=== PATIENT | female | born 1960 | race Caucasian/White ===

== ENCOUNTER → 2018-12-27 | Outpatient (CLI) | payer BC ==
--- NOTE | 2018-12-27 07:30 | US ---
EXAMINATION TYPE: US duplex aorta DATE OF EXAM: 12/27/2018 COMPARISON: NONE CLINICAL HISTORY: Z82.49 Family aortic aneurysm. EXAM MEASUREMENTS: Abdominal Aorta: Proximal: 1.7 x 1.5 cm Mid: 1.5 x 1.4 cm Distal: 1.5 x 1.5 cm Bifurcation: rt, 0.9 x 0.8 cm lt, 0.9 x 0.9 cm Normal caliber aorta. IMPRESSION: No sonographic evidence of abdominal aortic aneurysm in the visualized portions of the ab dominal aorta.
== END | disposition home or self-care (01) ==
LOC: RADUSWWP 06:45
PROVIDERS: ATTEND Family Medicine
DX: Z13.6 Encounter for screening for cardiovascular disorders (principal); Z82.49 Family history of ischemic heart disease and other diseases of the circulatory system
CPT/HCPCS: 93979

== ENCOUNTER 2019-03-26 10:04 | Day surgery (SDC) | payer BC ==
[2019-03-24 10:25] VITALS: BMI 18.6
[~2019-03-26 10:04] MED LIST: LACTATED RINGERS 1,000 ML IV SCH; LIDOCAINE 1% 20 ML VIAL (10MG/ML) FOR IV START INTRADERMA PRN
[2019-03-26 10:48] VITALS: TEMP 98.5
[2019-03-26] MEDS ORDERED: PROPOFOL 10 MG/ML 20 ML VIAL IV ONE (11:08)
--- NOTE | 2019-03-26 11:26 | P.PCN ---
Date of Procedure: 03/26/19 Procedure(s) Performed: BRIEF HISTORY: Patient is a 59-year-old pleasant white female scheduled for an elective colonoscopy as a part of evaluation of prior history of colon polyps. Last colonoscopy was 5 years ago. PROCEDURE PERFORMED: Colonoscopy. PREOPERATIVE DIAGNOSIS: History of colon polyps IV sedation per Anesthesia. PROCEDURE: After informed consent was obtained, the patient, was brought into the endoscopy unit. IV sedation was administered by Anesthesia under continuous monitoring. Digital rectal examination was normal. Initially the Olympus CF-160 flexible video colonoscope was then inserted in the rectum, gradually advanced into the cecum without any difficulty. Careful examination was performed as the scope was gradually being withdrawn. Ileocecal valve and the appendiceal orifice were visualized and appeared normal. Prep was excellent. Mucosa of the cecum, ascending colon, transverse colon, descending colon, sigmoid colon, and rectum appeared normal. Retroflexion was performed in the rectum and no lesions were seen. The patient tolerated the procedure well. IMPRESSION: Normal-appearing colon from rectum to cecum with no evidence of colitis or colorectal neoplasia . RECOMMENDATIONS: Findings of this examination were discussed with the patient as well as her family. She was advised to have a repeat screening colonoscopy in 5 years cause of the prior history of colon polyps..
[2019-03-26 11:31] VITALS: RESP 16
[2019-03-26 12:27] VITALS: PULSE 60
[2019-03-26 12:28] VITALS: BP 175/73
== END 2019-03-26 12:33 | disposition home or self-care (01) ==
LOC: ORWHC2ENDO 10:04
PROVIDERS: ATTEND Internal Medicine Gastroenterology
DX: Z12.11 Encounter for screening for malignant neoplasm of colon (principal); H91.90 Unspecified hearing loss, unspecified ear; Z86.010 Personal history of colon polyps; Z91.012 Allergy to eggs; Z79.899 Other long term (current) drug therapy; Z85.3 Personal history of malignant neoplasm of breast; Z90.10 Acquired absence of unspecified breast and nipple; Z88.2 Allergy status to sulfonamides
CPT/HCPCS: G0105; J2704

== ENCOUNTER → 2019-05-13 | Outpatient (CLI) | payer BC ==
[2019-05-13 10:39] VITALS: BP 148/86; PULSE 73; RESP 16; TEMP 97.3
--- NOTE | 2019-05-13 11:38 | P.HPOB ---
History of Present Illness H&P Date: 05/13/19 Chief Complaint: The patient is here for her routine gynecologic exam and ma mmogram. This is a 59-year-old 0-2 with an LMP of 2005. She is here to reestablish with this office. She was last here in 2012 and she states she had a pelvic exam elsewhere approximately in 2018. She is without gynecologic complaints and denies any postmenopausal bleeding. Review of Systems The patient's weight has been stable over the last year. She denies r espiratory, cardiac, or G.I. problems. Past Medical History Past Medical History: Cancer, Hearing Disorder / Deafness, Osteoarthritis (OA) Additional Past Medical History / Comment(s): DX LT BREAST CANCER 2000 HAD CHEMO & RADIATION & RADICAL MASTECTOMY 2002, HEARING IMPAIRMENT- HEARING AIDS, ENVIRONMENTAL ALLERGIES. , HX OF SINUS & EAR INFECTIONS. 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 History of Any Multi-Drug Resistant Organisms: None Reported Past Surgical History: Breast Surgery, Tonsillectomy Additional Past Surgical History / Comment(s): LT RADICAL MASTECTOMY 2002, LEFT EAR SURGERY. Colonoscopy 2019(2nd, next after 5yrs). 2 VTP. 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 - Past Family History Father Family Medical History: CVA/TIA Mother Family Medical History: Asthma, Hypertension Additional Family Medical History / Comment(s): Maternal and paternal grandfathers both had CVAs. Brother(s) Family Medical History: Hypertension Medications and Allergies Home Medications Medication Instructions Recorded Confirmed Type Fexofenadine HCl [Nohelia Allergy] 180 mg PO DAILY 11/04/13 05/13/19 History Montelukast [Singulair] 10 mg PO HS 11/04/13 05/13/19 History Albuterol Inhaler [Ventolin Hfa 1 - 2 puff INHALATION RT-Q6H PRN 03/24/19 05/13/19 History Inhaler] Calcium Carbonate [Calcium] 600 mg PO DAILY 03/24/19 05/13/19 History Cholecalciferol (Vitamin D3) 2,000 unit PO DAILY 03/24/19 05/13/19 History [Vitamin D3] Fluticasone Propionate [Flonase 1 spray EA NOSTRIL DAILY 03/24/19 05/13/19 History Allergy Relief] Hyoscyamine Sulfate [Levsin] 0.125 mg PO DAILY PRN 03/24/19 05/13/19 History Multivit-Min/FA/Lycopen/Lutein 1 each PO DAILY 03/24/19 05/13/19 History [Centrum Silver Tablet] Turmeric Root Extract [Turmeric] 500 mg PO DAILY 03/24/19 05/13/19 History Vitamin C/Biotin [Hair, Skin and 1 tab PO DAILY 03/24/19 05/13/19 History Nails] Allergies Allergy/AdvReac Type Severity Reaction Status Date / Time egg Allergy Unknown Stomach Verified 05/13/19 10:39 Pain gluten Allergy Unknown Diarrhea, Verified 05/13/19 10:39 Stomach Pain Milk Containing Products Allergy Unknown Diarrhea Verified 05/13/19 10:39 tree nut [Nut] Allergy Unknown Diarrhea, Verified 05/13/19 10:39 Stomach Pain Exam Vital Signs Temp Pulse Resp BP Pulse Ox 05/13/19 10:31 97.3 F L 73 16 148/86 98 Intake and Output 05/12/19 05/13/19 05/13/19 22:59 06:59 14:59 Other: Weight 48.988 kg Height 5 feet 0 inches, weight 108 pounds, BMI 21.1. This is a well-developed well-nourished white female who is alert and oriented times 3 in no acute distress. HEENT: She is hard of hearing. Otherwise Within normal limits. NECK: Supple without mass or thyromegaly. CHEST AND LUNGS: Clear to auscultation. HEART: Regular rate and rhythm. BREASTS: Right breast is without mass or discharge. Left side is consistent with previous left mastectomy. There are no abnormal masses. AXILLARY EXAM: Negative for adenopathy. BACK: Negative for CVA tenderness. ABDOMEN: Soft, nontender, without palpable masses. PELVIC EXAM: Normal external genitalia with mild atrophy. Cervix and vagina appear normal with mild atrophy. There is no unusual discharge. There is no evidence of prolapse. The uterus is midposition, nongravid size and nontender. There are no palpable adnexal masses or tenderness. RECTAL EXAM: Rectovaginal exam is negative for mass or tenderness and is negative for occult blood. EXTREMITIES: Nontender. IMPRESSION: 1. 59-year-old menopausal female with normal gynecologic exam. 2. History of left breast cancer in 2002. There is no evidence of recurrence on exam today. 3. Elevated blood pressure. PLAN: 1. Pap smear was performed. 2. Self breast awareness was discussed with the patient. 3. Diagnostic right mammogram will be done today. Her last one was in 2018. 4. Osteoporosis prevention was discussed. I have stressed the importance of adequate calcium, vitamin D and regular exercise. Recommended amounts of calcium and vitamin D were also discussed. 5. We have discussed her elevated blood pressure. I have recommended that she check her blood pressure on a regular basis at home. She is to follow-up with Dr. Troy for blood pressure elevations. 6. She was advised to return in one year for her annual well woman exam.
--- NOTE | 2019-05-13 12:04 | MM ---
Reason for exam: additional evaluation requested from prior study. Last mammogram was performed 5 years and 3 months ago. History: Patient is postmenopausal, has history of breast cancer at age 42, and had first child at age 33. Malignant excisional biopsy of the left breast, June 16, 2002. Benign excisional biopsy of the right breast, June 16, 2002. Chemotherapy, 2002. Mastectomy of the left breast. Radiation therapy of the left breast. Took hormonal contraceptives for 3 years. Took tamoxifen for 5 years beginning at age 42. Physical Findings: Dr. Solares did breast exam. MG 3D Diag Mammo W/Cad RT CC and MLO view(s) were taken of the right breast. Prior study comparison: February 24, 2014, right breast MG diagnostic mammo RT w CAD. November 12, 2012, right diagnostic mammogram w/CAD. The breast tissue is heterogeneously dense. This may lower the sensitivity of mammography. No suspicious abnormality. No significant new findings when compared with previous films. These results were verbally communicated with the patient and result sheet given to the patient on 05/13/19. ASSESSMENT: Negative, BI-RAD 1 RECOMMENDATION: Follow-up diagnostic mammogram of the right breast in 1 year.
== END | disposition home or self-care (01) ==
LOC: WWCWWP 10:27
PROVIDERS: ATTEND Obstetrics & Gynecology
DX: Z08 Encounter for follow-up examination after completed treatment for malignant neoplasm (principal); Z85.3 Personal history of malignant neoplasm of breast
CPT/HCPCS: 77061; 77065

== ENCOUNTER → 2020-02-02 | Outpatient (CLI) | payer BC | END | disposition home or self-care (01) | LOC: LABWHC1 10:17 | PROVIDERS: ATTEND Student in an Organized Health Care Education/Training Program | DX: Z20.828 Contact with and (suspected) exposure to other viral communicable diseases (principal) ==

== ENCOUNTER → 2020-02-13 | Outpatient (CLI) | payer BC | END | disposition home or self-care (01) | LOC: LABWHC1 11:35 | PROVIDERS: ATTEND Student in an Organized Health Care Education/Training Program | DX: Z01.818 Encounter for other preprocedural examination (principal) ==

== ENCOUNTER → 2020-06-15 | Outpatient (CLI) | payer BC ==
--- NOTE | 2020-06-17 10:41 | MM ---
Reason for exam: screening (asymptomatic). Last mammogram was performed 1 year and 1 month ago. History: Patient is postmenopausal, has history of breast cancer at age 42, and had first child at age 33. Malignant excisional biopsy of the left breast, June 16, 2002. Benign excisional biopsy of the right breast, June 16, 2002. Chemotherapy, 2002. Mastectomy of the left breast. Radiation therapy of the left breast. Took hormonal contraceptives for 3 years. Took tamoxifen for 5 years beginning at age 42. Physical Findings: A clinical breast exam by your physician is recommended on an annual basis and results should be correlated with mammographic findings. MG 3D Scr Cyndi Unilateral W/Cad CC and MLO view(s) were taken of the right breast. Prior study comparison: May 13, 2019, right breast MG 3d diag mammo w/cad RT. February 24, 2014, right breast MG diagnostic mammo RT w CAD. The breast tissue is heterogeneously dense. This may lower the sensitivity of mammography. No significant changes when compared with prior studies. ASSESSMENT: Negative, BI-RAD 1 RECOMMENDATION: Routine screening mammogram of the right breast in 1 year. Patient should continue monthly self breast exams. A negative report should not preclude additional follow up of suspicious palpable abnormalities.
== END ==
LOC: RADMAMWWP 16:02
PROVIDERS: ATTEND Family Medicine
DX: Z12.31 Encounter for screening mammogram for malignant neoplasm of breast (principal); Z78.0 Asymptomatic menopausal state; Z85.3 Personal history of malignant neoplasm of breast
CPT/HCPCS: 77067

== ENCOUNTER → 2021-06-27 | Outpatient (CLI) | payer BC ==
--- NOTE | 2021-06-28 11:04 | MM ---
Reason for exam: screening (asymptomatic). Last mammogram was performed 1 year ago. History: Patient is postmenopausal, has history of breast cancer at age 42, and had first child at age 33. Malignant excisional biopsy of the left breast, June 16, 2002. Benign excisional biopsy of the right breast, June 16, 2002. Chemotherapy, 2002. Mastectomy of the left breast. Radiation therapy of the left breast. Took hormonal contraceptives for 3 years. Took tamoxifen for 5 years beginning at age 42. Physical Findings: A clinical breast exam by your physician is recommended on an annual basis and results should be correlated with mammographic findings. MG 3D Scr Cyndi Unilateral W/Cad CC and MLO view(s) were taken of the right breast. Prior study comparison: June 15, 2020, bilateral MG 3d scr cyndi unilateral w/cad. May 13, 2019, right breast MG 3d diag mammo w/cad RT. The breast tissue is heterogeneously dense. This may lower the sensitivity of mammography. There is no discrete abnormality. ASSESSMENT: Negative, BI-RAD 1 RECOMMENDATION: Routine screening mammogram of the right breast in 1 year.
== END | disposition home or self-care (01) ==
LOC: RADMAMWWP 08:00
PROVIDERS: ATTEND Family Medicine
DX: Z12.31 Encounter for screening mammogram for malignant neoplasm of breast (principal); Z78.0 Asymptomatic menopausal state; Z85.3 Personal history of malignant neoplasm of breast
CPT/HCPCS: 77067

== ENCOUNTER → 2021-12-09 | Outpatient (CLI) | payer BC | END | disposition home or self-care (01) | LOC: LABWHC1 11:15 | PROVIDERS: ATTEND Otolaryngology | DX: J30.89 Other allergic rhinitis (principal) | CPT/HCPCS: 36415 ==

== ENCOUNTER → 2022-08-11 | Outpatient (CLI) | payer BC ==
--- NOTE | 2022-08-14 08:46 | MM ---
Reason for Exam: Screening (asymptomatic). Last mammogram was performed 1 year(s) and 1 month(s) ago. Patient History: Menarche at age 15. First Full-Term at age 33. Late child-bearing (after 30). Postmenopausal. Breast cancer, age 42. Patient used Hormonal Contraceptives for 3 years. Tamoxifen for 5 years from age 42 until age 47. 06/16/2002, Benign Excisional Biopsy on the right side. Mastectomy on the Left side. 06/16/2002, Malignant Excisional Biopsy on the left side. Radiation Therapy, left. 2002, Chemotherapy. Prior Study Comparison: 05/13/2019 Right Diagnostic Mammogram, [facility]. 06/15/2020 Bilateral Screening Mammogram, [facility]. 06/27/2021 Bilateral Screening Mammogram, [facility]. Tissue Density: Right: The breast tissue is heterogeneously dense. This may lower the sensitivity of mammography. Findings: Analyzed By CAD. There is no suspicious group of microcalcifications or new suspicious mass in the right breast. Overall Assessment: Negative, BI-RAD 1 Management: Screening Mammogram of the right breast in 1 year. A clinical breast exam by your physician is recommended on an annual basis and results should be correlated with mammographic findings. Electronically signed and approved by: Danial Liu D.O.
== END | disposition home or self-care (01) ==
LOC: RADMAMWWP 10:56
PROVIDERS: ATTEND Family Medicine
DX: Z12.31 Encounter for screening mammogram for malignant neoplasm of breast (principal); Z78.0 Asymptomatic menopausal state
CPT/HCPCS: 77067

== ENCOUNTER 2023-04-06 15:47 | Emergency (ER) | payer BC ==
[2023-04-06 16:31] LABS: Basophils # (A) 0.1 k/uL (0-0.2); Basophils % (A) 1 %; Eosinophils # (A) 0.2 k/uL (0-0.7); Eosinophils % (A) 3 %; HGB 14.1 gm/dL (11.4-16.0); Lymphocytes # (A) 2.4 k/uL (1.0-4.8); Lymphocytes % (A) 31 %; MCH 29.6 pg (25.0-35.0); MCHC 33.6 g/dL (31.0-37.0); MCV 88.1 fL (80.0-100.0); Mean Platelet Volume 8.6; Monocytes # (A) 0.5 k/uL (0-1.0); Monocytes % (A) 6 %; Neutrophils # (A) 4.4 k/uL (1.3-7.7); Neutrophils % (A) 55 %; Platelet Count 284 k/uL (150-450); RBC 4.77 m/uL (3.80-5.40); RDW 12.1 % (11.5-15.5); WBC 7.9 k/uL (3.8-10.6)
[2023-04-06 16:43] LABS: ALT 19 U/L (4-34); AST 31 U/L (14-36); African American GFR (CKD) >90 (>60 ml/min/1.73 sqM); Albumin 4.5 g/dL (3.5-5.0); Alkaline Phosphatase 70 U/L (38-126); Anion Gap 13 mmol/L; Blood Urea Nitrogen 17 mg/dL (7-17); Calcium 9.4 mg/dL (8.4-10.2); Carbon Dioxide 20 mmol/L (22-30); Chloride 102 mmol/L (98-107); Glucose 150 mg/dL (74-99); Non-African American GFR(CKD) >90 (>60 ml/min/1.73 sqM); Potassium 3.8 mmol/L (3.5-5.1); Sodium 135 mmol/L (137-145); Total Bilirubin 0.8 mg/dL (0.2-1.3); Total Protein 7.1 g/dL (6.3-8.2)
[2023-04-06] MEDS ORDERED: SODIUM CHLORIDE 0.9% 500 ML 500 ML IV ONE (16:47)
--- NOTE | 2023-04-06 16:48 | ED ---
General Adult HPI - General Chief complaint: Altered Mental Status Stated complaint: Altered Mental Status Time Seen by Provider: 04/06/23 15:56 Source: family, EMS, RN notes reviewed, old records reviewed Mode of arrival: EMS Limitations: altered mental status - History of Present Illness Initial comments: 63 female with dementia presents for evaluation of nausea vomiting after initiating rivastigmine. Patient had been prescribed this medication by her neurologist for dementia. She had previously taken this medication in the form of a patch but this had a very expensive co-pay. She been on a different dementia medication for the past several months and was switched back to rivastigmine today and took her first dose just prior to onset of symptoms. She has history of dementia, cochlear implant and hearing aid. She states that she felt that the noises in her head were loud and she had nausea with vomiting. Denies headache. Denies focal numbness or weakness. - Related Data Home Medications Medication Instructions Recorded Confirmed Fexofenadine HCl [Nohelia Allergy] 180 mg PO DAILY 11/04/13 05/13/19 Montelukast [Singulair] 10 mg PO HS 11/04/13 05/13/19 Albuterol Inhaler [Ventolin Hfa 1 - 2 puff INHALATION RT-Q6H PRN 03/24/19 05/13/19 Inhaler] Calcium Carbonate [Calcium] 600 mg PO DAILY 03/24/19 05/13/19 Cholecalciferol (Vitamin D3) 2,000 unit PO DAILY 03/24/19 05/13/19 [Vitamin D3] Fluticasone Propionate [Flonase 1 spray EA NOSTRIL DAILY 03/24/19 05/13/19 Allergy Relief] Hyoscyamine Sulfate [Levsin] 0.125 mg PO DAILY PRN 03/24/19 05/13/19 Multivit-Min/FA/Lycopen/Lutein 1 each PO DAILY 03/24/19 05/13/19 [Centrum Silver Tablet] Turmeric Root Extract [Turmeric] 500 mg PO DAILY 03/24/19 05/13/19 Vitamin C/Biotin [Hair, Skin and 1 tab PO DAILY 03/24/19 05/13/19 Nails] Allergies Allergy/AdvReac Type Severity Reaction Status Date / Time egg Allergy Unknown Stomach Verified 04/06/23 15:53 Pain gluten Allergy Unknown Diarrhea, Verified 04/06/23 15:53 Stomach Pain Milk Containing Products Allergy Unknown Diarrhea Verified 04/06/23 15:53 (Dairy) [Milk Containing Products] tree nut [Nut] Allergy Unknown Diarrhea, Verified 04/06/23 15:53 Stomach Pain Review of Systems ROS Statement: Those systems with pertinent positive or pertinent negative responses have been documented in the HPI. ROS Other: All systems not noted in ROS Statement are negative. Past Medical History Past Medical History: Cancer, Dementia, Hearing Disorder / Deafness, Osteoarthritis (OA) Additional Past Medical History / Comment(s): DX LT BREAST CANCER 2000 HAD CHEMO & RADIATION & RADICAL MASTECTOMY 2002, HEARING IMPAIRMENT- HEARING AIDS, ENVIRONMENTAL ALLERGIES. , HX OF SINUS & EAR INFECTIONS. 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 History of Any Multi-Drug Resistant Organisms: None Reported Past Surgical History: Breast Surgery, Tonsillectomy Additional Past Surgical History / Comment(s): LT RADICAL MASTECTOMY 2002, LEFT EAR SURGERY. Colonoscopy 2019(2nd, next after 5yrs). 2 VTP. Past Anesthesia/Blood Transfusion Reactions: No Reported Reaction, Family History of Problems w/ Anesthesia, Motion Sickness Additional Past Anesthesia/Blood Transfusion Reaction / Comment(s): MOTHER- WORSENED ASTHMA Past Psychological History: No Psychological Hx Reported Smoking Status: Never smoker Past Alcohol Use History: Rare Past Drug Use History: None Reported - Past Family History Father Family Medical History: CVA/TIA Mother Family Medical History: Asthma, Hypertension Additional Family Medical History / Comment(s): Maternal and paternal grandfathers both had CVAs. Brother(s) Family Medical History: Hypertension General Exam Limitations: altered mental status General appearance: alert, other (Appears uncomfortable) Eye exam: Present: normal appearance, PERRL ENT exam: Present: mucous membranes moist Respiratory exam: Present: normal lung sounds bilaterally. Absent: respiratory distress, wheezes Cardiovascular Exam: Present: regular rate, normal rhythm GI/Abdominal exam: Present: soft. Absent: distended, tenderness Extremities exam: Present: normal inspection, normal capillary refill Neurological exam: Present: alert. Absent: oriented X3, motor sensory deficit Skin exam: Present: warm, dry, intact Course Vital Signs 04/06/23 04/06/23 04/06/23 15:49 16:28 17:40 Temperature 98.2 F Pulse Rate 78 80 Respiratory 22 18 Rate Blood Pressure 134/71 127/72 O2 Sat by Pulse 100 100 100 Oximetry Medical Decision Making - Medical Decision Making Was pt. sent in by a medical professional or institution (CHUCK Mcmahan, HVAC/R INSTRUCTOR, urgent care, hospital, or [facility]...) When possible be specific @ -No Did you speak to anyone other than the patient for history (EMS, parent, family, police, friend...)? What history was obtained from this source @ -No Did you review nursing and triage notes (agree or disagree)? Why? @ -I reviewed and agree with nursing and triage notes Were old charts reviewed (outside hosp., previous admission, EMS record, old EKG , old radiological studies, urgent care reports/EKG's, [facility] records)? Report findings @ -No old charts were reviewed Differential Diagnosis (chest pain, altered mental status, abdominal pain women, abdominal pain men, vaginal bleeding, weakness, fever, dyspnea, syncope, headache, dizziness, GI bleed, back pain, seizure, CVA, palpatations, mental health, musculoskeletal)? @ -not applicable EKG interpreted by me (3pts min.). @ Sinus rhythm rate of 72, GA interval 183, QRS duration 103, QTC [address] segment elevation. X-rays interpreted by me (1pt min.). @ -None done CT interpreted by me (1pt min.). @ -None done U/S interpreted by me (1pt. min.). @ -None done What testing was considered but not performed or refused? (CT, X-rays, U/S, labs)? Why? @ -None What meds were considered but not given or refused? Why? @ -None Did you discuss the management of the patient with other professionals (professionals i.e. CHUCK Mcmahan, HVAC/R INSTRUCTOR, lab, RT, psych nurse, forensic social worker, plaster die maker, teacher, labor relations officer, case checker)? Give summary @ -No Was smoking cessation discussed for >3mins.? @ -No Was critical care preformed (if so, how long)? @ -No Were there social determinants of health that impacted care today? How? (Homelessness, low income, unemployed, alcoholism, drug addiction, transportation, low edu. Level, literacy, decrease access to med. care, alf, rehab)? @ -No Was there de-escalation of care discussed even if they declined (Discuss DNR or withdrawal of care, Hospice)? DNR status @ -No What co-morbidities impacted this encounter? (DM, HTN, Smoking, COPD, CAD, Cancer, CVA, ARF, Chemo, Hep., AIDS, mental health diagnosis, sleep apnea, morbid obesity)? @ -Dementia Was patient admitted / discharged? Hospital course, mention meds given and route, prescriptions, significant lab abnormalities, going to OR and other pertinent info. @ -[63-year-old female with adverse drug reaction to rivastigmine, acute nausea and vomiting. VSS. labs wnl. pt feeling back to normal after 2 hrs. no further vomiting Undiagnosed new problem with uncertain prognosis? @ -No Drug Therapy requiring intensive monitoring for toxicity (Heparin, Nitro, Insulin, Cardizem)? @ -No Were any procedures done? @ -No Diagnosis/symptom? @ -Adverse Drug Reaction Acute, or Chronic, or Acute on Chronic? @ acute Uncomplicated (without systemic symptoms) or Complicated (systemic symptoms)? @ -default Side effects of treatment? @ -No Exacerbation, Progression, or Severe Exacerbation? @ -No Poses a threat to life or bodily function? How? (Chest pain, [place], [place], pneumonia, PE, COPD, DKA, ARF, appy, cholecystitis, CVA, Diverticulitis, Homicidal, Suicidal, threat to staff... and all critical care pts) @ -low risk at this time - Lab Data Result diagrams: 04/06/23 16:17 04/06/23 16:17 Lab Results 04/06/23 04/06/23 04/06/23 Range/Units 16:17 16:17 16:17 WBC 7.9 (3.8-10.6) k/uL RBC 4.77 (3.80-5.40) m/uL Hgb 14.1 (11.4-16.0) gm/dL Hct 42.0 (34.0-46.0) % MCV 88.1 (80.0-100.0) fL MCH 29.6 (25.0-35.0) pg MCHC 33.6 (31.0-37.0) g/dL RDW 12.1 (11.5-15.5) % Plt Count 284 (150-450) k/uL MPV 8.6 Neutrophils % 55 % Lymphocytes % 31 % Monocytes % 6 % Eosinophils % 3 % Basophils % 1 % Neutrophils # 4.4 (1.3-7.7) k/uL Lymphocytes # 2.4 (1.0-4.8) k/uL Monocytes # 0.5 (0-1.0) k/uL Eosinophils # 0.2 (0-0.7) k/uL Basophils # 0.1 (0-0.2) k/uL Sodium 135 L (137-145) mmol/L Potassium 3.8 (3.5-5.1) mmol/L Chloride 102 (98-107) mmol/L Carbon Dioxide 20 L (22-30) mmol/L Anion Gap 13 mmol/L BUN 17 (7-17) mg/dL Creatinine 0.69 (0.52-1.04) mg/dL Est GFR (CKD-EPI)AfAm >90 (>60 ml/min/1.73 sqM) Est GFR (CKD-EPI)NonAf >90 (>60 ml/min/1.73 sqM) Glucose 150 H (74-99) mg/dL Calcium 9.4 (8.4-10.2) mg/dL Total Bilirubin 0.8 (0.2-1.3) mg/dL AST 31 (14-36) U/L ALT 19 (4-34) U/L Alkaline Phosphatase 70 (38-126) U/L Total Protein 7.1 (6.3-8.2) g/dL Albumin 4.5 (3.5-5.0) g/dL Urine Color Colorless Urine Appearance Cloudy H (Clear) Urine pH 8.0 (5.0-8.0) Ur Specific Stoddard 1.009 (1.001-1.035) Urine Protein Negative (Negative) Urine Glucose (UA) Negative (Negative) Urine Ketones 1+ H (Negative) Urine Blood Negative (Negative) Urine Nitrite Negative (Negative) Urine Bilirubin Negative (Negative) Urine Urobilinogen <2.0 (<2.0) mg/dL Ur Leukocyte Esterase Negative (Negative) Urine RBC 2 (0-5) /hpf Urine Bacteria Rare H (None) /hpf Urine Mucus Rare H (None) /hpf Disposition Clinical Impression: Adverse effects of medication Disposition: HOME SELF-CARE Condition: Fair Instructions (If sedation given, give patient instructions): Adverse Drug Reaction (ED) Additional Instructions: Please discontinue Rivastigmine and low up with your neurologist Is patient prescribed a controlled substance at d/c from ED?: No Referrals: Juan Webb DO [Primary Care Provider] - 1-2 days Time of Disposition: 18:31
[2023-04-06] MEDS ORDERED: LORazepam 2 MG/ML INJ IV STA (16:52)
[2023-04-06 17:46] VITALS: RESP 18
[2023-04-06 17:59] LABS: Appearance,Urine Cloudy (Clear); Bacteria,Urine Rare /hpf; Bilirubin,Urine Negative (Negative); Blood,Urine Negative (Negative); Color,Urine Colorless; Glucose,Urine (UA) Negative (Negative); Ketones,Urine 1+ (Negative); Leukocyte Esterase,Urine Negative (Negative); Mucus,Urine Rare /hpf; Nitrite,Urine Negative (Negative); Protein,Urine Negative (Negative); RBC,Urine 2 /hpf (0-5); Specific Gravity,Urine 1.009 (1.001-1.035); Urobilinogen,Urine <2.0 mg/dL (<2.0)
[2023-04-06 18:53] VITALS: BP 123/70; PULSE 78; TEMP 98
== END 2023-04-06 18:49 | disposition home or self-care (01) ==
LOC: EC 15:47
DX: R11.2 Nausea with vomiting, unspecified (principal); T44.1X5A Adverse effect of other parasympathomimetics [cholinergics], initial encounter; M19.90 Unspecified osteoarthritis, unspecified site; Z79.899 Other long term (current) drug therapy; Z91.012 Allergy to eggs; Z91.011 Allergy to milk products; Z91.018 Allergy to other foods
CPT/HCPCS: 36415; 93005; 80053; 85025; 81001; 99285; 96374; 96361; J2060

== ENCOUNTER → 2023-08-22 | Outpatient (CLI) | payer BC ==
--- NOTE | 2023-08-22 11:05 | XR ---
EXAMINATION TYPE: XR chest 2V DATE OF EXAM: 08/22/2023 COMPARISON: NONE TECHNIQUE: PA and lateral views submitted. HISTORY: Chest pain FINDINGS: The lungs are clear and there is no pneumothorax, pleural effusion, or focal pneumonia. Mild cardiom egaly but no overt failure. Osseous structures intact. Biapical pleural thickening. IMPRESSION: 1. No acute process. 2. Mild cardiomegaly
--- NOTE | 2023-08-22 20:11 | CA ---
Exercise Stress Test Report Name: Nina Rios Exam Date: 08/22/2023 11:36 Exam Location: [place] Stress Ht (in): 64 Wt (lb): 100 BSA: 1.46 Ordering Phys: Rubin Bueno DO Referring Phys: RUBIN BUENO Technologist: Bell Gordon RDCS Age: 63 Gender: F : 1960 Procedure CPT: Indications: R07.89 chest pain ICD-10 Codes: Patient History: Shortness of breath and hypertension Medications: Meds past 24 hrs: Pretest Chest Pain: STRESS TEST Protocol Exercise Duration (min:sec): 12:[address] Depressions (mm): Angina Score: Gotti Score: Resting HR (bpm): 55 Peak HR (bpm): 124 Resting BP (mmHg): 128 / 69 Peak BP (mmHg): 149 / 62 MPHR: 158 Target HR: 134 % MPHR: 78 METS: 13.4 Total Dose: Peak Dose: Atropine: Double Product: 16062 BP Response: Stress Termination: Max exertion Stress Symptoms: No chest pain or symptoms Stress Summary: ECG ANALYSIS Resting ECG: Stress ECG: CONCLUSIONS Good exercise tolerance Non-diagnostic electrocardiogram stress testing. The patient achieved 78% of maximum predicted heart rate Dr. Cl Falcon MD (Electronically Signed) Final Date: 22 Aug 2023 20:10
--- NOTE | 2023-08-23 19:09 | MM ---
Reason for Exam: Screening (asymptomatic). Last mammogram was performed 1 year(s) and 1 month(s) ago. Patient History: Menarche at age 15. First Full-Term at age 33. Late child-bearing (after 30). Postmenopausal. Breast cancer, left, age 42. Patient used Hormonal Contraceptives for 3 years. Tamoxifen for 5 years from age 42 until age 47. 06/16/2002, Benign Excisional Biopsy on the right side. Mastectomy on the Left side. 06/16/2002, Malignant Excisional Biopsy on the left side. Radiation Therapy, left. 2002, Chemotherapy. Prior Study Comparison: 06/15/2020 Bilateral Screening Mammogram, [facility]. 06/27/2021 Bilateral Screening Mammogram, [facility]. 08/11/2022 Right MG 3D scr [place] unilateral w/cad., [facility]. Tissue Density: Right: The breasts are heterogeneously dense, which may obscure small masses. Findings: Analyzed By CAD. There is no suspicious group of microcalcifications or new suspicious mass in either breast. Overall Assessment: Negative, BI-RAD 1 Management: Screening Mammogram of the right breast in 1 year. Patient should continue monthly self-breast exams. A clinical breast exam by your physician is recommended on an annual basis. This exam should not preclude additional follow-up of suspicious palpable abnormalities. Electronically signed and approved by: Efra Multani M.D. Radiologist
== END | disposition home or self-care (01) ==
LOC: RADMAMWWP 09:52
PROVIDERS: ATTEND Family Medicine
DX: Z12.31 Encounter for screening mammogram for malignant neoplasm of breast (principal); I51.7 Cardiomegaly; J45.20 Mild intermittent asthma, uncomplicated; Z78.0 Asymptomatic menopausal state
CPT/HCPCS: 71046; 77067; 93017

== ENCOUNTER → 2024-08-22 | Outpatient (CLI) | payer BC ==
--- NOTE | 2024-08-22 11:08 | MM ---
Reason for Exam: Hx of breast cancer, mastectomy. Last screening mammogram was performed 12 month(s) ago. Patient History: Menarche at age 15. First Full-Term at age 33. Late child-bearing (after 30). Postmenopausal. Breast cancer, left, age 42. Patient used Hormonal Contraceptives for 3 years. Tamoxifen for 5 years from age 42 until age 47. 06/16/2002, Benign Excisional Biopsy on the right side. Mastectomy on the Left side. 06/16/2002, Malignant Excisional Biopsy on the left side. Radiation Therapy, left. 2002, Chemotherapy. Prior Study Comparison: 02/24/2014 Right Diagnostic Mammogram, [facility]. 05/13/2019 Right Diagnostic Mammogram, [facility]. 06/15/2020 Bilateral Screening Mammogram, [facility]. 06/27/2021 Bilateral Screening Mammogram, [facility]. 08/11/2022 Right MG 3D scr [place]win unilateral w/cad., [facility]. 08/22/2023 Right MG 3D scr ashwin unilateral w/cad., [facility]. Tissue Density: Right: The breasts are heterogeneously dense, which may obscure small masses. Findings: Analyzed By CAD. Right breast: There is no suspicious group of microcalcifications or new suspicious mass. Left breast: There is no suspicious group of microcalcifications or new suspicious mass. Overall Assessment: Negative, BI-RAD 1 Management: Screening Mammogram of both breasts in [address] [facility] will attempt to contact patient to return for supplemental views and ultrasound if indicated. Patient should continue monthly self-breast exams. A clinical breast exam by your physician is recommended on an annual basis. This exam should not preclude additional follow-up of suspicious palpable abnormalities. Note on Cherrie scores and lifetime risk: 1. A Cherrie score greater than 3% is considered moderate risk. If this is the case, consider specialist referral to assess eligibility for a risk reducing agent. 2. If overall lifetime risk for the development of breast cancer is 20% or higher, the patient may qualify for future screening with alternating mammogram and breast MRI. [facility], , 08/22/2024 11:05 AM. Electronically signed and approved by: Kali Vargas DO
== END | disposition home or self-care (01) ==
LOC: RADMAMWWP 10:09
PROVIDERS: ATTEND Family Medicine
DX: Z12.31 Encounter for screening mammogram for malignant neoplasm of breast (principal); R92.333 Mammographic heterogeneous density, bilateral breasts; Z78.0 Asymptomatic menopausal state; Z92.0 Personal history of contraception
CPT/HCPCS: 77067